=== PATIENT | male | born 1975 | race Native Hawaiian/Other Pacific Islander ===

== ENCOUNTER 2017-12-27 16:31 | Emergency (ER) | payer OTHER ==
[~2017-12-27] VITALS: Ht 170.2 cm; Wt 81.7 kg
[~2017-12-27 16:31] MED LIST: ACET325 PO; ALBU4; ALBU90OI INH; ALBU90OI61 INH; AMOCLA875 PO; AMOX500 PO; AZIT250 PO; Advair Hfa 230-12 GM; Amoxicillin500 M1 PO; BACL10 PO; Baclofen10 MG PO; Bactrim Ds Tab1 EACH PO; CYCL10 PO; Cyclobenzaprine5 MG PO; DOXY100 PO; Daypro600 MG PO; ERYT.5TO OS; FLUSAL2505 IH; FLUSAL2505 INH; HYDACE5 PO; IBUP200 PO; IBUP400 PO; IBUP800 PO; NAPR500 PO; Naprosyn500 MG PO; Norco 10-325 T1 EACH PO; Norco 5-325 Ta1 EACH PO; PENVK500 PO; Peridex480 ML SS; Prednisone20 MG PO; TRAM50 PO; Ultram50 MG PO; Veetids 500500 MG PO
[2017-12-27] MEDS ORDERED: METPRE4DP PO (18:06)
[2017-12-27] MEDS ORDERED: BENADRYL25 MG PO (18:06)
== END 2017-12-27 18:22 | disposition home or self-care (01) ==
LOC: ER 16:31
DX: K02.9 Dental caries, unspecified (principal); J44.9 Chronic obstructive pulmonary disease, unspecified; F17.210 Nicotine dependence, cigarettes, uncomplicated
CPT/HCPCS: 99282; J1100; Q0163

== ENCOUNTER 2018-06-13 20:53 | Emergency (ER) | payer OTHER ==
[~2018-06-13] VITALS: Ht 167.6 cm; Wt 83.9 kg
[~2018-06-13 20:53] MED LIST changes: +BENADRYL25 MG PO; +METPRE4DP PO
[2018-06-13] MEDS ORDERED: Norco 5-325 Ta1 EACH PO (22:48)
[2018-06-13] MEDS ORDERED: Amoxicillin875 MG PO (22:48)
== END 2018-06-13 23:01 | disposition home or self-care (01) ==
LOC: ER 20:53
DX: K04.7 Periapical abscess without sinus (principal); F17.210 Nicotine dependence, cigarettes, uncomplicated
CPT/HCPCS: 41800; 99282-25